=== PATIENT | female | born 1950 | race Caucasian/White ===

== ENCOUNTER → 2020-01-05 11:25 | Outpatient (CLI) | payer MEDICARE, SELFPAY ==
--- NOTE | ~2020-01-05 | XR_ITS ---
EXAMINATION: XR thoracic spine 3V EXAM DATE: 01/05/2020 12:39 INDICATION: Chronic right-sided thoracic pain. TECHNIQUE: Frontal and lateral projections of the thoracic spine as well as lateral swimmers projecti on of the upper thoracic spine for interpretation. There is no prior study for comparison. FINDINGS: There is mild mid thoracic and mild to moderate lower thoracic disc disease. The vertebral body and disc heights are otherwise well maintained. The vertebral bodies are aligned in the AP dime nsion. Tiny lower thoracic endplate osteophytes. The facet joints are poorly visualized but likely mi ld facet arthropathy. Paraspinal soft tissue is unremarkable. IMPRESSION: Mild to moderate lower thoracic disc disease. Reviewed, dictated and finalized at location A.
--- NOTE | ~2020-01-05 | XR_ITS ---
XR cervical spine 4-5V 01/05/2020 12:39 Indication: Acute low back pain Procedure: 4 views cervical spine Comparison: 03/02/2010 Findings: Straightening of cervical lordosis. No fracture or traumatic malalignment. There is advance d multilevel facet and uncinate hypertrophy. Lung apices are normal. Odontoid process within normal l imits. Impression: 1: Moderate cervical spondylosis. Reviewed, dictated and finalized at location B. Impression: 1: Moderate cervical spondylosis.
== END ==
PROVIDERS: Visit Provider Physician Assistant
DX: G89.29 Other chronic pain (principal); M51.24 Other intervertebral disc displacement, thoracic region; M47.892 Other spondylosis, cervical region
CPT/HCPCS: 72050; 72072

== ENCOUNTER → 2020-02-29 14:54 | Outpatient (CLI) | payer MEDICARE, SELFPAY ==
--- NOTE | ~2020-02-29 | MM_ITS ---
EXAMINATION: MM screening [facility] BI w lon HISTORY: Screening mammogram TECHNIQUE: Craniocaudal and mediolateral oblique 3-D tomosynthesis images were obtained and synthetic 2-D images were generated. CAD analysis was submitted and interpreted. COMPARISON: 10/23/2018 BREAST PARENCHYMAL COMPOSITION: There are scattered areas of fibroglandular density. FINDINGS: RIGHT BREAST: There is no evidence of suspicious mass, calcification, or architectural distortion to suggest malignancy. There has been no significant interval change. LEFT BREAST: There is focal asymmetry in the middle third of the upper outer quadrant of the breast. IMPRESSION: 1. Focal asymmetry of the left breast. 2. Additional mammographic views and possible breast ultrasound are recommended. BI-RADS Category 0: Incomplete: Needs additional imaging evaluation. Reviewed, dictated and finalized at location A. 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 Focal asymmetry of the left breast. 2. Additional mammographic views and possible breast ultrasound are recommended . BI-RADS Category 0: Incomplete: Needs additional imaging evaluation.
== END ==
PROVIDERS: PCP Physician Assistant; Visit Provider Physician Assistant
DX: Z12.31 Encounter for screening mammogram for malignant neoplasm of breast (principal); R92.8 Other abnormal and inconclusive findings on diagnostic imaging of breast
CPT/HCPCS: 77063; 77067

== ENCOUNTER → 2020-03-28 09:01 | Outpatient (CLI) | payer MEDICARE, SELFPAY ==
--- NOTE | ~2020-03-28 | MMUS_ITS ---
EXAMINATION: MM diagnostic mammo unilat LT, US breast LT limited HISTORY: Low up left breast asymmetry TECHNIQUE: Additional 3-D tomosynthesis images of the left breast were performed and synthetic 2-D im ages were generated. CAD analysis was submitted and interpreted. High resolution Limited left breast ultrasound was performed. COMPARISON: 02/29/2020 BREAST PARENCHYMAL COMPOSITION: Breast composed of scattered areas of fibroglandular density. FINDINGS: MAMMOGRAPHIC FINDINGS: There are focal asymmetries laterally in the left breast seen on CC view only. There are no suspiciou s calcifications or architectural distortion. ULTRASOUND: Left breast ultrasound Limited to the lateral half: At 2:00, 4 cm from the nipple, there is an oval h ypoechoic mass measuring 5 x 3 x 2 mm. No internal vascularity. No significant posterior features. Th is likely corresponds to the focal asymmetry seen on mammography. IMPRESSION: 1. Probable benign left breast mass at 2:00, 4 cm from the nipple measuring 5 mm maximum dimension. 2. Recommend 6 month follow-up diagnostic left mammogram and ultrasound BI-RADS category 3, probably benign findings. Reviewed, dictated and finalized at location A. 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 Probable benign left breast mass at 2:00, 4 cm from the nipple measuring 5 m m maximum dimension. 2. Recommend 6 month follow-up diagnostic left mammogram and ultrasound BI-RADS category 3, probably benign findings.
== END ==
PROVIDERS: PCP Physician Assistant; Visit Provider Physician Assistant
DX: R92.8 Other abnormal and inconclusive findings on diagnostic imaging of breast (principal)
CPT/HCPCS: 76642; 77065